=== PATIENT | male | born 1950 | race Caucasian/White ===

== ENCOUNTER 2018-07-12 02:27 | Inpatient (IN) | payer BC, OTHER ==
[~2018-07-12] VITALS: Ht 182.9 cm; Wt 98.4 kg
[2018-07-12] VITALS (7 sets, daily range): BP systolic 102–125; BP diastolic 53–70; Ht 182.9 cm; Wt 98.4 kg
[2018-07-12 03:04] LABS: PLATELET COUNT 257 x10^3mcL (130-400); RED CELL DISTRIBUTION WIDTH 13.9 % (11.5-14.5)
[2018-07-12 03:06] LABS: UA SPECIFIC GRAVITY >=1.030 (1.005-1.035); microscopic required? YES; urine erythrocyte 2+ (NEGATIVE)
[2018-07-12 03:07] LABS: BASOPHIL % 0 % (0-2)
[2018-07-12] MEDS ORDERED: LISINOPRIL10 MG PO (03:14)
[2018-07-12] MEDS ORDERED: METFORMIN HCL1000 MG PO (03:14)
[2018-07-12] MEDS ORDERED: LANTI SQ (03:15)
[2018-07-12] MEDS ORDERED: NOR5 PO (03:15)
[2018-07-12] MEDS ORDERED: HUMALOG KW100 UNIT/1 SQ (03:15)
[2018-07-12 03:16] LABS: CARBON DIOXIDE 23.9 mmol/L (21-32); CREATININE SERUM 1.4 mg/dL (0.7-1.3); POTASSIUM SERUM 4.1 mmol/L (3.5-5.1)
[2018-07-12] MEDS ORDERED: VICTOZA6 MG/M1 SC (03:16)
[2018-07-12] MEDS ORDERED: PHARMASSURE FO0.4 MG PO (03:16)
[2018-07-12] MEDS ORDERED: D-20001 TAB PO (03:17)
[2018-07-12] MEDS ORDERED: B-121000 MC2 PO (03:17)
[2018-07-12] MEDS ORDERED: FISH OIL 1,4001 EACH PO (03:17)
[2018-07-12 03:20] LABS: BILIRUBIN TOTAL 0.42 mg/dL (0.20-1.00)
[2018-07-12 03:32] LABS: CK-MB < 0.5 ng/mL (0-3.6); CREATINE KINASE 62 U/L (39-308)
[2018-07-12 05:26] LABS: MAGNESIUM 1.3 mg/dL (1.8-2.4); PHOSPHOROUS 3.4 mg/dL (2.5-4.9)
[2018-07-12 05:44] LABS: CHOLESTEROL/HDL RATIO 4.8
[2018-07-13 05:53] VITALS: BP 109/53
[2018-07-13 07:10] LABS: CARBON DIOXIDE 24.3 mmol/L (21-32); CHLORIDE SERUM 105 mmol/L (98-107); CREATININE SERUM 1.1 mg/dL (0.7-1.3); GFR1 > 60 mL/min; GLUCOSE SERUM 132 mg/dL (74-106); MAGNESIUM 1.7 mg/dL (1.8-2.4); PHOSPHOROUS 2.9 mg/dL (2.5-4.9); POTASSIUM SERUM 4.7 mmol/L (3.5-5.1); SODIUM SERUM 138 mmol/L (136-145)
[2018-07-13 08:28] LABS: BASOPHIL % 0.3 % (0-2); PLATELET COUNT 248 x10^3mcL (130-400); RED CELL DISTRIBUTION WIDTH 14.4 % (11.5-14.5)
[2018-07-13 09:36] VITALS: BP 132/68
[2018-07-13 13:08] VITALS: BP 112/54
[2018-07-13 16:56] VITALS: BP 117/67
[2018-07-13 20:56] VITALS: BP 99/58
[2018-07-14 05:47] VITALS: BP 132/74
[2018-07-14 06:28] LABS: BASOPHIL % 0.3 % (0-2); PLATELET COUNT 275 x10^3mcL (130-400)
[2018-07-14 06:59] LABS: CALCIUM 8.9 mg/dL (8.5-10.1); CARBON DIOXIDE 26.7 mmol/L (21-32); CHLORIDE SERUM 104 mmol/L (98-107); CREATININE SERUM 1.1 mg/dL (0.7-1.3); GFR1 > 60 mL/min; GLUCOSE SERUM 174 mg/dL (74-106); MAGNESIUM 1.8 mg/dL (1.8-2.4); PHOSPHOROUS 3.6 mg/dL (2.5-4.9); POTASSIUM SERUM 3.9 mmol/L (3.5-5.1); SODIUM SERUM 138 mmol/L (136-145)
[2018-07-14 08:24] VITALS: BP 114/94
[2018-07-14 12:48] VITALS: BP 120/55
[2018-07-14 15:14] VITALS: BP 120/55
[2018-07-14] MEDS ORDERED: CIPROFLOXACIN500 MG PO (15:38)
== END 2018-07-14 17:47 | disposition home or self-care (01) | DRG 871 ==
LOC: ED 02:27 → DU 04:56
PROVIDERS: Emergency Medicine; General Practice; Internal Medicine
DX: A41.9 Sepsis, unspecified organism (principal); J96.01 Acute respiratory failure with hypoxia; N17.0 Acute kidney failure with tubular necrosis; N39.0 Urinary tract infection, site not specified; E44.0 Moderate protein-calorie malnutrition; I10 Essential (primary) hypertension; E11.65 Type 2 diabetes mellitus with hyperglycemia; E83.42 Hypomagnesemia; R65.20 Severe sepsis without septic shock; E83.51 Hypocalcemia; D64.9 Anemia, unspecified; Z88.2 Allergy status to sulfonamides; Z68.29 Body mass index [BMI] 29.0-29.9, adult
CPT/HCPCS: 82962; 87804; J0696; J1885; J1956; J3475; J7030; J7050; Q0092